=== PATIENT | female | born 1990 | race Caucasian/White ===

== ENCOUNTER 2016-10-16 06:00 | Inpatient (IN) | payer MEDICAID ==
[2016-10-16] MEDS ORDERED: CARBOPROST TROMETHAMINE 250 MCG/ML 1 ML AMP IM PRN (06:34)
[2016-10-16] MEDS ORDERED: TERBUTALINE 1 MG/ML VIAL SQ PRN (06:34)
[2016-10-16] MEDS ORDERED: METHYLERGONOVINE 0.2 MG/ML 1 ML AMP IM PRN (06:34)
[2016-10-16] MEDS ORDERED: LIDOCAINE 1% (PF) 10 MG/ML (30 ML SDV) SQ PRN (06:34)
[2016-10-16] MEDS ORDERED: OXYTOCIN 10 UNIT/ML 1 ML VIAL IM PRN (06:34)
[2016-10-16 06:43] LABS: Basophils % (A) 0 %; CH 30.2; CHCM 34.4; Eosinophils # (A) 0.1 k/uL (0-0.7); Eosinophils % (A) 1 %; HCT 34.2 % (34.0-46.0); HDW 2.64; HGB 11.8 gm/dL (11.4-16.0); Luc # (Auto) 0.23; Luc % (Auto) 2; Lymphocytes # (A) 1.6 k/uL (1.0-4.8); Lymphocytes % (A) 17 %; MCH 30.5 pg (25.0-35.0); MCHC 34.5 g/dL (31.0-37.0); MCV 88.3 fL (80.0-100.0); Mean Platelet Volume 8.3; Monocytes # (A) 0.8 k/uL (0-1.0); Monocytes % (A) 9 %; Neutrophils # (A) 6.8 k/uL (1.3-7.7); Neutrophils % (A) 70 %; RBC 3.88 m/uL (3.80-5.40); RDW 14.4 % (11.5-15.5); WBC 9.7 k/uL (3.8-10.6); WBC (Perox) 10.06
[2016-10-16] MEDS ORDERED: OXYTOCIN 30 UNITS/500 ML NS 30 UNIT in SALINE 1 500ML.BAG IV SCH ×2 (06:45→16:00)
[2016-10-16] MEDS: LACTATED RINGERS 1,000 ML IV SCH ×2 (07:03→09:00)
--- NOTE | 2016-10-16 07:08 | P.HPOB ---
History of Present Illness H&P Date: 10/16/16 Chief Complaint: Here for elective induction of labor, favorable cervix. This is a 25 rolled white female 1 para 0 EDC 10/16/2016 at 40 weeks gestation. Patient presents today for elective induction of labor with favorable cervix at term gestation. She is having irregular uterine contractions. She denies fluid leakage or vaginal bleeding. Fetus is been active throughout the . Past ocular history is unremarkable. Past surgical history is negative. Current medications vitamins daily. ALLERGIES none known. Family history significant for brain cancer, cystic fibrosis, heart disease and diabetes. Social history patient is single, father of the baby is involved, she works at [employer]. She denies alcohol tobacco or drug use. On exam this is a pleasant white female, 5 foot 3-1/2 inches tall, vital signs are stable and she is afebrile. Weight is approximately 160 pounds. The general physical exam is within normal limits. The chest is clear in all santiago. The extremities reveal no edema. The cervix is 3 cm dilated, 80% effaced, -2 station, vertex presentation, soft, anterior. Artificial amniorrhexis reveals clear fluid. heart rate is in the 140s with frequent accelerations consistent with reactive NST. Impression: 40 week intrauterine , favorable cervix, here for elective induction of labor. Plan: Close maternal and surveillance. Oxytocin per hospital protocol. Patient is aware of her options for analgesia. Anticipate normal spontaneous vaginal delivery. Review of Systems Negative except as in HPI Medications and Allergies Home Medications Medication Instructions Recorded Confirmed Type Ferrous Sulfate [Feosol] 325 mg PO DAILY 10/16/16 10/16/16 History Mv,Ca,Min/Folic Acid/Vit K1 1 each PO DAILY 10/16/16 10/16/16 History [One-A-Day Women's 50 Plus Tab] Allergies Allergy/AdvReac Type Severity Reaction Status Date / Time No Known Allergies Allergy Verified 10/16/16 06:32 Exam - Vital Signs Vital signs: Intake and Output 10/15/16 10/16/16 10/16/16 22:59 06:59 14:59 Other: Weight 73.936 kg See dictation, please Results Result Diagrams: 10/16/16 06:29 Assessment and Plan Plan: Close maternal and surveillance. Oxytocin per hospital protocol. Patient is aware of her options for analgesia when needed. Anticipate normal spontaneous vaginal delivery. Time with Patient: Less than 30
[2016-10-16 08:08] VITALS: BMI 28.8
[2016-10-16] MEDS ORDERED: BUPIVACAINE (PF) 0.25% 30 ML VIAL ONE (09:13)
[2016-10-16] MEDS ORDERED: fentaNYL (PF) 50 MCG/ML 5 ML AMP ONE (09:13)
[2016-10-16] MEDS ORDERED: SODIUM CHLORIDE 0.9% 100 ML BAG ONE (09:13)
[2016-10-16] MEDS ORDERED: ACETAMINOPHEN TAB 325 MG TAB PO PRN (15:48)
[2016-10-16] MEDS ORDERED: BENZOCAINE/MENTHOL SPRAY 1 GM/SPRAY AEROSOL TOPICAL PRN (15:48)
[2016-10-16] MEDS ORDERED: diphenhydrAMINE ELIXIR 25 MG/10 ML CUP PO PRN (15:48)
[2016-10-16] MEDS ORDERED: SIMETHICONE 80 MG CHEWABLE PO PRN (15:48)
[2016-10-16] MEDS ORDERED: HYDROCORTISONE 2.5% RECTAL CREAM 30 GM TUBE RECTAL PRN (15:48)
[2016-10-16] MEDS ORDERED: diphenhydrAMINE 50 MG/ML 1 ML VIAL IVP PRN ×2 (15:48)
[2016-10-16] MEDS ORDERED: diphenhydrAMINE 50 MG CAP PO PRN (15:48)
[2016-10-16] MEDS ORDERED: Acetaminophen-Codeine 300-30mg TAB PO PRN (15:48)
[2016-10-16] MEDS ORDERED: ZOLPIDEM 5 MG TAB PO PRN (15:48)
[2016-10-16] MEDS ORDERED: WITCH HAZEL 1 EACH MED..PAD TOPICAL PRN (15:48)
[2016-10-16] MEDS ORDERED: LANOLIN CREAM 5 GM TUBE TOPICAL PRN (15:48)
[2016-10-16] MEDS ORDERED: diphenhydrAMINE 25 MG CAP PO PRN (15:48)
--- NOTE | 2016-10-16 15:48 | P.PROBDLV ---
Vaginal Delivery Note - . Vaginal Delivery Note: This is a 25-year-old white female 1 para 0 EDC 10/16/2016 at 40 weeks gestation. Patient presented today for induction with favorable cervix. is unremarkable, group B strep cultures negative, blood type B-, rubella status immune. Please see my dictated history and physical for details. Patient was admitted, artificial amniorrhexis revealed clear fluid. Oxytocin was started and titrated per hospital protocol. Epidural was requested and placed. She progressed well through the first stage of labor, heart tones were reassuring throughout the first and second stages. Patient was judged to be completely dilated at 1411 hours and began the second stage of labor at that time. With excellent maternal expulsive efforts the 's head delivered occiput anterior. The perineal body had been prepped and draped in the usual sterile fashion. There was a nuchal cord 1 that was easily reduced on the perineal body. The left or anterior shoulder was then easily delivered. Patient was officially delivered of a liveborn male infant at 1500 hrs. Umbilical cord was doubly clamped and ligated, he was handed to waiting nurses for evaluation where scores of 9 and 9 at one and 5 minutes respectively were given. The placenta was delivered spontaneously, it was inspected and noted to be intact with trivascular cord at 1504 hrs. The uterus was then massaged. Inspection of the cervix, vagina, perineum, periurethral, and perirectal areas revealed a small first-degree perineal laceration. This was easily repaired with a single [id number]-[id number] suture of 3-0 Vicryl. Fundus is firm and in the midline, symmetric and 18 week size upon completion of delivery. All sponge needle and enhancement counts are correct at the end of the procedure. Patient and her significant other are requesting circumcision further son. Infant weighed 3455 g or 7 lbs. 10 oz.
[2016-10-16] MEDS: IBUPROFEN 600 MG TAB PO PRN (17:43)
[2016-10-16] MEDS: SENNOSIDES-DOCUSATE SODIUM 1 EACH TAB PO SCH (21:23)
[2016-10-17] MEDS: IBUPROFEN 600 MG TAB PO PRN (04:38)
--- NOTE | 2016-10-17 07:44 | P.DS ---
Providers Date of admission: 10/16/16 06:08 Expected date of discharge: 10/17/16 Attending physician: Amna Nair Primary care physician: Stated None Hospital Course: This is a 25-year-old white female 1 para 0 EDC 10/16/2016 at 40 weeks gestation. Patient presented for elective induction for favorable cervix at term. has been unremarkable, group B strep cultures negative, blood type B negative, please see my dictated history and physical for details. Patient progressed well through the first and second stages of labor and went on to swiftly deliver a liveborn male infant with scores of 9 and 9 at one and 5 minutes respectively. There was a nuchal cord easily reduced. There was a small first-degree perineal laceration repaired without issue. Estimated blood loss 300 mL's. weighed 7 lbs. 10 oz. or 3455 g. Please see my dictated delivery note for details. This morning the patient is doing well. She is voiding, and bleeding and passing flatus without difficulty. Vital signs are stable and she is afebrile. Infant is doing well, circumcision performed, he has been discharged by the manager auto. Patient is reminded no intercourse, tampons or douching. She will use [id number]-[id number] ibuprofen products, 200 mg pills, 3 every 6 hours as needed for pain. I've asked her to call me with any fevers shakes or chills , foul smelling or copious lochia, with the passage of large blood clots, with any pain not alleviated by [id number]-[id number]-[id number] products, or indeed with any concerns. We have briefly discussed methods of contraception and we will discuss this further in the office. Plan - Discharge Summary Discharge Medication List Ferrous Sulfate [Feosol] 325 mg PO DAILY 10/16/16 [History] Mv,Ca,Min/Folic Acid/Vit K1 [One-A-Day Women's 50 Plus Tab] 1 each PO DAILY 10/01 [History] Follow up Appointment(s)/Referral(s): Amna Nair MD [STAFF PHYSICIAN] - 6 Weeks Discharge Disposition: HOME SELF-CARE
[2016-10-17] MEDS: SENNOSIDES-DOCUSATE SODIUM 1 EACH TAB PO SCH (08:33)
[2016-10-17 10:29] VITALS: BP 122/71; PULSE 92; RESP 18; TEMP 97.4
== END 2016-10-17 15:30 | disposition home or self-care (01) | DRG 775 ==
LOC: 4FBP 06:08
PROVIDERS: ADMIT Obstetrics & Gynecology; ATTEND Obstetrics & Gynecology
PROC: 10E0XZZ Delivery of Products of Conception, External Approach (ICD-10-PCS; principal; 2016-10-16)
PROC: 0HQ9XZZ Repair Perineum Skin, External Approach (ICD-10-PCS; 2016-10-16)
PROC: 10907ZC Drainage of Amniotic Fluid, Therapeutic from Products of Conception, Via Natural or Artificial Opening (ICD-10-PCS; 2016-10-16)
PROC: 3E033VJ Introduction of Other Hormone into Peripheral Vein, Percutaneous Approach (ICD-10-PCS; 2016-10-16)
DX: O69.81X0 Labor and delivery complicated by cord around neck, without compression, not applicable or unspecified (principal); O70.0 First degree perineal laceration during delivery; Z37.0 Single live birth; Z3A.40 40 weeks gestation of pregnancy; Z79.899 Other long term (current) drug therapy
CPT/HCPCS: 85025; 88307

== ENCOUNTER 2018-11-13 10:48 | Outpatient (CLI) | payer MEDICAID ==
[2018-11-13] MEDS ORDERED: DEXTROSE 5%-LACTATED RINGERS 1,000 ML IV SCH (11:30)
[2018-11-13 11:49] LABS: Basophils % (A) 0 %; Eosinophils % (A) 0 %; HCT 34.7 % (34.0-46.0); HGB 11.6 gm/dL (11.4-16.0); Lymphocytes # (A) 0.6 k/uL (1.0-4.8); Lymphocytes % (A) 8 %; MCH 28.9 pg (25.0-35.0); MCHC 33.4 g/dL (31.0-37.0); MCV 86.4 fL (80.0-100.0); Mean Platelet Volume 7.7; Monocytes # (A) 0.6 k/uL (0-1.0); Monocytes % (A) 8 %; Neutrophils # (A) 6.3 k/uL (1.3-7.7); Neutrophils % (A) 82 %; Platelet Count 204 k/uL (150-450); RBC 4.01 m/uL (3.80-5.40); RDW 14.3 % (11.5-15.5); WBC 7.6 k/uL (3.8-10.6)
[2018-11-13 11:50] VITALS: BP 120/70; PULSE 120; RESP 14; TEMP 97.7
[2018-11-13 12:13] LABS: Amorphous Sediment,Urine Rare /hpf; Appearance,Urine Cloudy (Clear); Bacteria,Urine Few /hpf; Bilirubin,Urine Negative (Negative); Blood,Urine Small (Negative); Color,Urine Yellow; Glucose,Urine (UA) Trace (Negative); Ketones,Urine 4+ (Negative); Leukocyte Esterase,Urine Small (Negative); Mucus,Urine Rare /hpf; Nitrite,Urine Negative (Negative); PH, Urine 5.5 (5.0-8.0); Protein,Urine 1+ (Negative); RBC,Urine 7 /hpf (0-5); Specific Gravity,Urine 1.016 (1.001-1.035); Squamous Epithelial Cell,Urine 11 /hpf (0-4); WBC,Urine 4 /hpf (0-5)
--- NOTE | 2018-12-09 08:00 | P.MSEPDOC ---
Presenting Problems - Arrival Data Date of Arrival on Unit: 11/13/18 Time of Arrival on Unit: 10:48 Mode of Transport: Ambulatory - Complaint OB-Reason for Admission/Chief Complaint: Acute Nausea/Vomiting Medical History - Information : 2 Para: 1 Term: 1 : 0 Abortions: Spontaneous or Elective: 0 Number of Living Children: 1 - Gestational Age Gestational Age by FIDEL (wks/days): 34 Weeks and 4 Days Review of Systems - Review of Systems Constitutional: No problems Breast: No problems ENT: No problems Cardiovascular: No problems Respiratory: No problems Gastrointestinal: No problems Genitourinary: No problems Musculoskeletal: No problems Neurological: No problems Skin: No problems Vital Signs - Temperature Temperature: 97.7 F Temperature Source: Tympanic - Pulse Right Brachial Pulse Rate: 120 Pulse Assessment Method: Automatic Cuff - Respirations Respiratory Rate: 14 Oxygen Delivery Method: Room Air - Blood Pressure Right Arm Blood Pressure: 120/70 Blood Pressure Mean: 86 Blood Pressure Source: Automatic Cuff Medical Screen Scoring (Pre) - Cervical Exam Dilation: 0 cm = 0 Membranes: Intact - Uterine Contractions Frequency: N/A Duration: N/A Intensity: N/A - Maternal Vital Signs Maternal Temperature: N/A Maternal Blood Pressure: N/A Signs of Preeclampsia: N/A Maternal Respirations: N/A - Pain Assessment Pain Location and Character: Back Pain Scale Used: Numeric (1 - 10) Pain Intensity: 4 Pain Management Goal: 1 Pain Description: *Acute, Dull Pain Radiation Location: na Pain Frequency: Constant Pain Duration: 12 Pain Duration Units: Hours Pain Behavior: Vocalization Pain Aggravating Factors: None Non-Pharmacological Interventions: Position/Reposition - Maternal Trauma Maternal Trauma: N/A - Assessment Baseline FHR: 135 Heart Rate - NICHD Category: Category I (Normal) = 0 NST: Reactive Position: N/A Station: N/A - Total Score Total Score (Pre): 0 - Level of Risk Level of Risk: N/A Physician Notification (Pre) - Physician Notified Physician Notified Date: 11/13/18 Physician Notified Time: 11:00 Physician/Practitioner Notifed:: Dr. Nair Spoke With: Dr. Nair New Order Received: Yes - Notification Comment Comment: start IV, check cervix, and send UA and CBC Medical Screen Scoring (Post) - Uterine Contractions Frequency: N/A Duration: N/A Intensity: N/A - Maternal Vital Signs Maternal Temperature: N/A Maternal Blood Pressure: N/A Maternal Respirations: N/A - Pain Assessment Pain Scale Used: Numeric (1 - 10) Pain Intensity: 0 Pain Management Goal: 0 - Maternal Trauma Maternal Trauma: N/A - Assessment Heart Rate: 145 Heart Rate - NICHD Category: Category I (Normal) = 0 NST: Reactive Position: N/A Station: N/A - Total Score Total Score (Post): 0 - Post Treatment Level of Risk Post Treatment Level of Risk: Low (0-5) Physician Notification (Post) - Physician Notified Physician Notified Date: 11/13/18 Physician Notified Time: 12:30 Physician/Practitioner Notified:: Dr. Nair Spoke With: Dr. Nair New Order Received: Yes - Notification Comment Comment: d/c home Disposition - Disposition OB Disposition: Physician follow up in office Discharge Date: 11/13/18 Discharge Time: 13:00 I agree with the RN Medical Screening Exam: Yes Risk & Benefit of care provided described in d/c instruction: Yes Diagnosis: LATE VOMITING OF
== END 2018-11-13 13:00 | disposition home or self-care (01) ==
LOC: FBPOP 10:48
PROVIDERS: ATTEND Obstetrics & Gynecology
DX: O21.2 Late vomiting of pregnancy (principal); Z3A.34 34 weeks gestation of pregnancy
CPT/HCPCS: 59025; 81001; 85025; 87086; 96360; 99214

== ENCOUNTER 2018-12-25 21:00 | Inpatient (IN) | payer MEDICAID ==
[2018-12-25] MEDS ORDERED: TERBUTALINE 1 MG/ML VIAL SQ PRN (21:30)
[2018-12-25] MEDS ORDERED: CARBOPROST TROMETHAMINE 250 MCG/ML 1 ML AMP IM PRN (21:30)
[2018-12-25] MEDS ORDERED: OXYTOCIN 30 UNITS/500 ML NS 30 UNIT in SALINE 1 500ML.BAG IV SCH (21:30)
[2018-12-25] MEDS ORDERED: METHYLERGONOVINE 0.2 MG/ML 1 ML AMP IM PRN (21:30)
[2018-12-25] MEDS ORDERED: LIDOCAINE 0.5% (PF) 5 MG/ML (50 ML SDV) SQ PRN (21:30)
[2018-12-25] MEDS ORDERED: OXYTOCIN 10 UNIT/ML 1 ML VIAL IM PRN (21:30)
[2018-12-25 21:50] VITALS: BMI 29.9
[2018-12-25] MEDS: LACTATED RINGERS 1,000 ML IV SCH (21:58)
[2018-12-25 22:15] LABS: Basophils % (A) 0 %; Eosinophils # (A) 0.1 k/uL (0-0.7); Eosinophils % (A) 1 %; HCT 35.7 % (34.0-46.0); HGB 11.4 gm/dL (11.4-16.0); Lymphocytes # (A) 2.1 k/uL (1.0-4.8); Lymphocytes % (A) 17 %; MCH 28.1 pg (25.0-35.0); MCHC 31.9 g/dL (31.0-37.0); MCV 88.1 fL (80.0-100.0); Mean Platelet Volume 7.1; Monocytes # (A) 0.8 k/uL (0-1.0); Monocytes % (A) 7 %; Neutrophils # (A) 8.9 k/uL (1.3-7.7); Neutrophils % (A) 73 %; Platelet Count 195 k/uL (150-450); RBC 4.05 m/uL (3.80-5.40); RDW 14.3 % (11.5-15.5); WBC 12.1 k/uL (3.8-10.6)
--- NOTE | 2018-12-25 22:39 | P.HPOB ---
History of Present Illness H&P Date: 12/25/18 Chief Complaint: Strong regular uterine contractions This is a 28-year-old white female 2 para 1001 EDC 12/22/2018 at 40-3/7 weeks' gestation. Patient presents tonight with strong regular uterine contractions. She denies fluid leakage or vaginal bleeding. Fetus is been active throughout the . Past medical history is unremarkable. Past surgical history is negative. Current medications vitamins daily. ALLERGIES none known. Social history patient is single, boyfriend is present and involved, she has never been a smoker and denies alcohol or drug use. Family history significant for brain cancer, cystic fibrosis, diabetes and heart disease, hypercholesterol and hypertension. Obstetric history blood type is B-, rubella status immune. VDRL testing, hepatitis B surface antigen, gonorrhea and chlamydia cultures, group B strep culture, urine culture all negative. One-hour Glucola 139. On exam she is 5 foot 3 inches, 168 pounds, blood pressure 125/72. Vital signs are otherwise stable and she is afebrile. The general physical exam is within normal limits. Cervix is completely dilated, 90% effaced, -2 station. Contractions occurring every 5 minutes apart of moderate intensity. Artificial amniorrhexis reveals clear fluid. heart rate at this time is consistent with reactive NST, frequent accelerations, type I decelerations with uterine contractions. Plan: 40 weeks intrauterine , active spontaneous labor. All signs currently reassuring. Plan: Close maternal and surveillance. Anticipate normal spontaneous vaginal delivery. Review of Systems Constitutional: Reports as per HPI Past Medical History Past Medical History: No Reported History History of Any Multi-Drug Resistant Organisms: None Reported Past Surgical History: No Surgical Hx Reported Past Anesthesia/Blood Transfusion Reactions: No Reported Reaction Past Psychological History: No Psychological Hx Reported Smoking Status: Never smoker Past Alcohol Use History: None Reported Past Drug Use History: None Reported - Past Family History Father Family Medical History: No Reported History Medications and Allergies Home Medications Medication Instructions Recorded Confirmed Type Ferrous Sulfate [Feosol] 325 mg PO DAILY 10/16/16 12/25/18 History Multivit/Folic Acid/Vit K1 1 each PO DAILY 10/16/16 12/25/18 History [One-A-Day Women's 50 Plus Tab] Allergies Allergy/AdvReac Type Severity Reaction Status Date / Time No Known Allergies Allergy Verified 12/25/18 21:17 Exam Vital Signs Temp Pulse Resp BP Pulse Ox 12/25/18 21:37 96.6 F L 85 16 125/72 99 12/25/18 21:18 96.6 F L 85 16 125/72 99 Intake and Output 12/25/18 12/25/18 12/25/18 06:59 14:59 22:59 Other: # Voids 1 Weight 76.612 kg See dictation under HPI please Results Result Diagrams: 12/25/18 21:50 Abnormal Lab Results - Last 24 Hours (Table) 12/25/18 Range/Units 21:50 WBC 12.1 H (3.8-10.6) k/uL Neutrophils # 8.9 H (1.3-7.7) k/uL Assessment and Plan Assessment: 40-3/7 weeks intrauterine , active spontaneous labor. Plan: Continue close maternal and surveillance. Anticipate normal spontaneous vaginal delivery. Time with Patient: Less than 30
--- NOTE | 2018-12-25 23:26 | P.PROBDLV ---
Vaginal Delivery Note - . Vaginal Delivery Note: This is a 28-year-old white female 2 para 1001 EDC 01/01/2018 at 40-3/7 weeks' gestation. Patient presented tonight with strong regular uterine contractions, in spontaneous labor. was essentially unremarkable, group B strep cultures negative, blood type B-, rubella status immune. Please see my dictated history and physical for details. Artificial amniorrhexis revealed clear fluid. heart rate overall was reassuring with frequent accelerations, she did have 2 spontaneous decelerations that were treated with position change and oxygen administration. She became completely dilated at 2025 hours. The perineal body was prepped and draped in the usual sterile fashion. Patient was allowed to labor until an urge to push was noted. At that time she was placed in the dorsal lithotomy position. With excellent maternal expulsive efforts the head quickly crowned and restituted accordingly. There was no nuchal cord noted. The right or anterior shoulder was gently delivered from underneath the pubic symphysis at which time the oropharynx, nasopharynx, and external nares were bulb suctioned on the perineum. Patient was officially delivered of a liveborn male infant at 2257 hours. Umbilical cord was doubly clamped and ligated, he was handed to waiting nurses for evaluation where scores of 9 and 9 at one and 5 minutes respectively were given. Placenta was delivered spontaneously, it was inspected and noted to be intact w ith trivascular cord. Inspection of the cervix, vagina, perineum, periurethral, and perirectal areas revealed a small amount of membranes in the vaginal vault that were gently teased out with a ring forcep. The perineal body was noted to have a small second-degree midline laceration that was injected with lidocaine, and repaired in the usual fashion using 3-0 undyed Vicryl. Infant weighs 8 lbs. 7 oz. or 3835 g. All sponge needle and enhancement counts are correct at the end of the procedure. Patient and her are requesting circumcision for their son.
[2018-12-25] MEDS ORDERED: diphenhydrAMINE 50 MG/ML 1 ML VIAL IVP PRN ×2 (23:28)
[2018-12-25] MEDS ORDERED: diphenhydrAMINE ELIXIR 25 MG/10 ML CUP PO PRN (23:28)
[2018-12-25] MEDS ORDERED: LANOLIN CREAM 5 GM TUBE TOPICAL PRN (23:28)
[2018-12-25] MEDS ORDERED: WITCH HAZEL 1 EACH MED..PAD TOPICAL PRN (23:28)
[2018-12-25] MEDS ORDERED: IBUPROFEN 600 MG TAB PO PRN (23:28)
[2018-12-25] MEDS ORDERED: ZOLPIDEM 5 MG TAB PO PRN (23:28)
[2018-12-25] MEDS ORDERED: diphenhydrAMINE 50 MG CAP PO PRN (23:28)
[2018-12-25] MEDS ORDERED: diphenhydrAMINE 25 MG CAP PO PRN (23:28)
[2018-12-25] MEDS ORDERED: HYDROcodone/APAP 5-325MG 1 EACH TAB PO PRN (23:28)
[2018-12-25] MEDS ORDERED: SIMETHICONE 80 MG CHEWABLE PO PRN (23:28)
[2018-12-25] MEDS ORDERED: IBUPROFEN ORAL SUSP 100 MG/5 ML CUP PO PRN (23:28)
[2018-12-25] MEDS ORDERED: BENZOCAINE/MENTHOL SPRAY 1 GM/SPRAY AEROSOL TOPICAL PRN (23:28)
[2018-12-25] MEDS ORDERED: HYDROCORTISONE 2.5% RECTAL CREAM 30 GM TUBE RECTAL PRN (23:28)
[2018-12-25] MEDS ORDERED: ACETAMINOPHEN TAB 325 MG TAB PO PRN (23:28)
[2018-12-25] MEDS ORDERED: OXYTOCIN 20 UNITS/1000 ML NS 1,000 ML IV SCH (23:30)
[2018-12-26] MEDS: SENNOSIDES-DOCUSATE SODIUM 1 EACH TAB PO SCH ×2 (08:05→20:44)
--- NOTE | 2018-12-26 09:40 | P.DS ---
Providers Date of admission: 12/25/18 21:27 Expected date of discharge: 12/26/18 Attending physician: Amna Nair [facility] Course: This is a 28-year-old white female 2 para 1001 EDC 12/22/2018 at 40-3/7 weeks' gestation. Patient presented last night in spontaneous active labor. is unremarkable, rubella status immune, group B strep cultures negative, blood type B negative. Please see my dictated history and physical for details. Artificial amniorrhexis revealed clear fluid. Patient went on to swiftly deliver a liveborn male infant with scores of 9 and 9 at one and 5 minutes respectively. He weighed 8 lbs. 7 oz. or 3835 g. The was a small second-degree perineal laceration easily repaired, and an estimated blood loss of 250 mL's. Please see my dictated delivery note for details. This morning the patient is doing well. She is voiding, ambulating and passing flatus without difficulty. Vital signs are stable and she is afebrile. Fundus is firm and in the midline, symmetric and 18 week size. Extremities are negative for edema. Breasts are not engorged. Breast-feeding is going well. infant has been circumcised and is doing well. Patient is judged to be in very good condition for discharge home. She will follow-up in the office with me in 6 weeks. I have reminded her no intercourse, tampons or douching. She will use [id number] Advil or Aleve, or Motrin 200 mg pills, 3 every 6 hours as needed. She will call with any fevers shakes or chills, foul smelling or copious lochia, with the passage of large blood clots, with any pain not alleviated by [id number]-[id number] products, or indeed with any concerns. We have briefly contemplated options for contraception and we will discuss this further in the office. Patient Condition at Discharge: Good Plan - Discharge Summary Discharge Rx Participant: No New Discharge Prescriptions: No Action Multivit/Folic Acid/Vit K1 [One-A-Day Women's 50 Plus Tab] 1 each PO DAILY Ferrous Sulfate [Feosol] 325 mg PO DAILY Discharge Medication List Ferrous Sulfate [Feosol] 325 mg PO DAILY 10/16/16 [History] Multivit/Folic Acid/Vit K1 [One-A-Day Women's 50 Plus Tab] 1 each PO DAILY 10/16/16 [History] Follow up Appointment(s)/Referral(s): Amna Nair MD [Primary Care Provider] - 6 Weeks
[2018-12-26 16:19] VITALS: BP 107/62; PULSE 67; RESP 16; TEMP 98.2
[2018-12-26] MEDS: LACTATED RINGERS 1,000 ML IV SCH (20:43)
== END 2018-12-26 23:00 | disposition home or self-care (01) | DRG 807 ==
LOC: FBPOP 21:00 → 4FBP 21:27
PROVIDERS: ADMIT Obstetrics & Gynecology; ATTEND Obstetrics & Gynecology
PROC: 0KQM0ZZ Repair Perineum Muscle, Open Approach (ICD-10-PCS; principal; 2018-12-25)
PROC: 10907ZC Drainage of Amniotic Fluid, Therapeutic from Products of Conception, Via Natural or Artificial Opening (ICD-10-PCS; principal; 2018-12-25)
PROC: 10E0XZZ Delivery of Products of Conception, External Approach (ICD-10-PCS; principal; 2018-12-25)
DX: O70.1 Second degree perineal laceration during delivery (principal); Z37.0 Single live birth; Z3A.40 40 weeks gestation of pregnancy; O76 Abnormality in fetal heart rate and rhythm complicating labor and delivery; Z80.8 Family history of malignant neoplasm of other organs or systems; Z82.49 Family history of ischemic heart disease and other diseases of the circulatory system; Z83.3 Family history of diabetes mellitus
CPT/HCPCS: 59025; 85025; 86850; 86870; 86880; 86900; 86901; 99213

== ENCOUNTER 2023-12-02 06:02 | Inpatient (IN) | payer BC ==
[2023-12-02] MEDS ORDERED: miSOPROStoL 200 MCG TAB PO PRN (06:24)
[2023-12-02] MEDS ORDERED: TERBUTALINE 1 MG/ML VIAL SQ PRN (06:24)
[2023-12-02] MEDS ORDERED: OXYTOCIN 10 UNIT/ML 1 ML VIAL IM PRN (06:24)
[2023-12-02] MEDS ORDERED: CARBOPROST TROMETHAMINE 250 MCG/ML 1 ML AMP IM PRN (06:24)
[2023-12-02] MEDS ORDERED: METHYLERGONOVINE 0.2 MG/ML 1 ML AMP IM PRN (06:24)
[2023-12-02] MEDS ORDERED: TRANEXAMIC 1,000 MG/100ML-NACL 1,000 MG in EMPTY BAG 1 BAG IV PRN (06:24)
[2023-12-02] MEDS: LACTATED RINGERS 1,000 ML IV SCH (06:40)
[2023-12-02] MEDS: OXYTOCIN 30 UNITS/500 ML NS 30 UNIT in SALINE 1 500ML.BAG IV SCH (06:41)
[2023-12-02 06:46] LABS: Basophils % (A) 0 %; Eosinophils # (A) 0.1 k/uL (0-0.7); Eosinophils % (A) 1 %; HCT 32.6 % (34.0-46.0); HGB 10.8 gm/dL (11.4-16.0); Lymphocytes # (A) 1.8 k/uL (1.0-4.8); Lymphocytes % (A) 22 %; MCH 27.8 pg (25.0-35.0); MCHC 33.1 g/dL (31.0-37.0); MCV 83.9 fL (80.0-100.0); Mean Platelet Volume 8.6; Monocytes # (A) 0.7 k/uL (0-1.0); Monocytes % (A) 9 %; Neutrophils # (A) 5.2 k/uL (1.3-7.7); Neutrophils % (A) 65 %; Platelet Count 180 k/uL (150-450); RBC 3.89 m/uL (3.80-5.40); RDW 15.9 % (11.5-15.5)
[2023-12-02 07:01] LABS: Glucose,Whole Blood 93 mg/dL (70-110)
[2023-12-02] MEDS: NALBUPHINE 10 MG/ML (10 ML MDV) IV PRN (12:54)
[2023-12-02] MEDS ORDERED: SODIUM CHLORIDE 0.9% 250 ML BAG ONE (17:10)
[2023-12-02] MEDS ORDERED: ROPIVACAINE 5 MG/ML 30 ML VIAL ONE (17:10)
[2023-12-02] MEDS ORDERED: fentaNYL (PF) 50 MCG/ML 5 ML AMP ONE (17:10)
[2023-12-02] MEDS: LIDOCAINE 0.5% (PF) 5 MG/ML (50 ML SDV) SQ PRN (19:30)
[2023-12-02] MEDS: BENZOCAINE/MENTHOL SPRAY 1 GM/SPRAY AEROSOL TOPICAL PRN (19:40)
[2023-12-02] MEDS ORDERED: ZOLPIDEM 5 MG TAB PO PRN (19:41)
[2023-12-02] MEDS ORDERED: diphenhydrAMINE 50 MG CAP PO PRN (19:41)
[2023-12-02] MEDS ORDERED: LANOLIN CREAM 1 GM TUBE TOPICAL PRN (19:41)
[2023-12-02] MEDS ORDERED: HYDROCORTISONE 2.5% RECTAL CREAM 30 GM TUBE RECTAL PRN (19:41)
[2023-12-02] MEDS ORDERED: diphenhydrAMINE 25 MG CAP PO PRN (19:41)
[2023-12-02] MEDS ORDERED: SIMETHICONE 80 MG CHEWABLE PO PRN (19:41)
[2023-12-02] MEDS ORDERED: diphenhydrAMINE 50 MG/ML 1 ML VIAL IVP PRN ×2 (19:41)
--- NOTE | 2023-12-02 19:45 | P.PROBDLV ---
Vaginal Delivery Note - . Vaginal Delivery Note: 32-year-old at 39-1/7 weeks that presented to labor and delivery this morning for scheduled induction of labor secondary to gestational diabetes, A1. Patient was admitted and Pitocin induction of labor was begun. Patient underwent amniotomy and clear fluid was obtained. Patient progressed through most the day comfortable, patient did receive Nubain x 2. Patient did become uncomfortable and had an epidural placed by the anesthesia department. Patient quickly progressed to complete began pushing and had a normal spontaneous vaginal delivery of a viable female at 1926, weight of 6 pounds 12 ounces, Apgars of 9 and 9 at 1 and 5 minutes respectively. After 2-minute delay the umbilical heart was doubly clamped and cut. Cord blood was then taken. This placenta was delivered spontaneously intact with a three-vessel cord being noted. Inspection the patient's vaginal vault second-degree midline laceration was appreciated. This was repaired in usual fashion with 3-0 Rapide. Patient had a dense epidural therefore lidocaine instillation was not required. Uterus was noted to be firm and below the umbilicus. Bladder was drained prior to the onset of pushing for 200 cc. All counts were to be correct x 2 at the end of the delivery. Patient and tolerated delivery well and are resting comfortably.
[2023-12-02] MEDS: IBUPROFEN 600 MG TAB PO SCH (20:45)
[2023-12-02] MEDS: SENNOSIDES-DOCUSATE SODIUM 1 EACH TAB PO SCH (22:35)
[2023-12-02] MEDS: ACETAMINOPHEN TAB 325 MG TAB PO PRN (23:23)
[2023-12-02] MEDS: Rhogam IMMUNE GLOBULIN 1,500 UNIT/1 ML IM ONE (23:30)
--- NOTE | 2023-12-03 08:06 | P.HPOB ---
History of Present Illness H&P Date: 12/02/23 Chief Complaint: IUP at 39 weeks, gestational diabetes, A1 This is a 32-year-old 3 para 2-0-0-2 at 39 weeks of gestation that presents for induction of labor secondary to gestational diabetes, A1. Patient has been receiving routine care complicated by diagnosis of gestational diabetes. Blood sugars have been good throughout the . Patient has un dergone testing which has been normal throughout the third trimester. Patient notes good movement denies contractions vaginal bleeding or loss of fluid. On blood work this patient is a blood type of B-, rubella status nonimmune, hepatitis B surface engine negative, HIV negative, RPR is nonreactive, grew beta strep culture was negative. Review of Systems Constitutional: Denies chills, Denies fatigue, Denies fever Ears, nose, mouth and throat: Denies headache Cardiovascular: Denies leg edema Respiratory: Denies dyspnea Gastrointestinal: Denies nausea, Denies vomiting Genitourinary: Reports Past Medical History Past Medical History: No Reported History History of Any Multi-Drug Resistant Organisms: None Reported Past Surgical History: No Surgical Hx Reported Past Anesthesia/Blood Transfusion Reactions: No Reported Reaction Past Psychological History: No Psychological Hx Reported Smoking Status: Never smoker Past Alcohol Use History: None Reported Past Drug Use History: None Reported - Past Family History Father Family Medical History: No Reported History Medications and Allergies Home Medications Medication Instructions Recorded Confirmed Type Multivit/Folic Acid/Vit K1 1 each PO DAILY 10/16/16 12/02/23 History [One-A-Day Women's 50 Plus Tab] Allergies Allergy/AdvReac Type Severity Reaction Status Date / Time No Known Allergies Allergy Verified 11/20/23 10:32 Exam Osteopathic Statement: *. No significant issues noted on an osteopathic structural exam other than those noted in the History and Physical/Consult. Vital Signs Pulse Resp BP 12/02/23 07:21 84 16 119/72 Intake and Output 12/01/23 12/02/23 12/02/23 22:59 06:59 14:59 Other: Weight 78.018 kg 78.018 kg Targeted physical exam is performed this date General is well-nourished well- developed female in no acute distress, breathing is noted nonlabored, heart has a regular rate rhythm, abdomen is gravid and appropriate for gestational age, on cervical exam she is 1/70/-2 station amniotomy is performed and clear fluid was obtained. heart tones are noted to be category 1 and she is valente irregularly. Results Result Diagrams: 12/02/23 06:29 Abnormal Lab Results - Last 24 Hours (Table) 12/02/23 Range/Units 06:29 Hgb 10.8 L (11.4-16.0) gm/dL Hct 32.6 L (34.0-46.0) % RDW 15.9 H (11.5-15.5) % Assessment and Plan (1) Term Current Visit: Yes Status: Acute Code(s): Z34.90 - ENCNTR FOR SUPRVSN OF NORMAL , UNSP, UNSP TRIMESTER SNOMED Code(s): 06850892 (2) GDM (gestational diabetes mellitus), class A1 Current Visit: Yes Status: Acute Code(s): O24.410 - GESTATIONAL DIABETES MELLITUS IN , DIET CONTROLLED SNOMED Code(s): 90632181 Plan: 32-year-old at 39 weeks of presents for induction of labor secondary to gestational diabetes, A1. Patient is admitted and Pitocin induction of labor has begun. Options for analgesia are discussed including Nubain, nitrous, epidural. Patient will consider. Anticipate spontaneous vaginal delivery later this afternoon.
--- NOTE | 2023-12-03 08:09 | P.DS ---
Providers Date of admission: 12/02/23 06:02 Expected date of discharge: 12/03/23 Attending physician: Ananya Coto Primary care physician: Stated None - Discharge Diagnosis(es) (1) Term Current Visit: Yes Status: Acute (2) GDM (gestational diabetes mellitus), class A1 Current Visit: Yes Status: Acute (3) Status post vaginal delivery Current Visit: Yes Status: Acute (4) Obstetric vaginal laceration with second degree perineal laceration Current Visit: Yes Status: Acute Hospital Course: This is a 32-year-old -0-0-2 at 39-1/7 weeks that presents to labor and delivery for scheduled induction of labor secondary to gestational diabetes, A1. Patient had been receiving routine and care. Patient is admitted to labor and delivery and Pitocin induction of labor has begun per hospital protocol. Patient underwent amniotomy and clear fluid was obtained. Patient made minimal change throughout the day. Patient did become uncomfortable and received Nubain x 2. Patient was noted to be 2 cm around 1700 and epidural was requested. Anesthesia presented and epidural was placed without difficulty. Patient was then noted to be 6 to 7 cm and quickly progressed to complete. Patient began pushing and had a normal spontaneous vaginal delivery of a viable female infant at 1926, weight of 6 pounds 12 ounces. Apgars of 9 and 9 at 1 and 5 minutes respectively were appreciated. Patient has done well . In this day #1 she is ambulating and voiding without difficulty. She is tolerating a regular diet without nausea or vomiting. She states her pain is well-controlled. She denies concerns and would like discharge home at 24 hours if possible. Patient Condition at Discharge: Good Plan - Discharge Summary New Discharge Prescriptions: No Action Multivit/Folic Acid/Vit K1 [One-A-Day Women's 50 Plus Tab] 1 each PO DAILY Discharge Medication List Multivit/Folic Acid/Vit K1 [One-A-Day Women's 50 Plus Tab] 1 each PO DAILY 10/16/16 [History] Follow up Appointment(s)/Referral(s): Ananya Coto DO [Doctor of Osteopathic Medicine] - 6 Weeks Patient Instructions/Handouts: Vaginal Delivery (DC), Vaginal Delivery (GEN) Activity/Diet/Wound Care/Special Instructions: No intercourse, tampons or douching. No heavy lifting greater than a gallon of milk. No driving for two weeks. Call with any fever, shakes or chills, with any pain not alleviated by over the counter meds, or with any quesions or concerns. Discharge Disposition: HOME SELF-CARE
[2023-12-03 09:00] VITALS: RESP 16
[2023-12-03] MEDS: PRENATAL VIT-IRON-FOLIC ACID 1 EACH TABLET PO SCH (10:32)
[2023-12-03 15:46] VITALS: BP 112/71; PULSE 83; TEMP 97.5
== END 2023-12-03 20:26 | disposition home or self-care (01) | DRG 807 ==
LOC: 4FBP 06:02 → MERGE 09:17
PROVIDERS: ADMIT Obstetrics & Gynecology Obstetrics; ATTEND Obstetrics & Gynecology Obstetrics
PROC: 3E033VJ Introduction of Other Hormone into Peripheral Vein, Percutaneous Approach (ICD-10-PCS; principal; 2023-12-02)
PROC: 10907ZC Drainage of Amniotic Fluid, Therapeutic from Products of Conception, Via Natural or Artificial Opening (ICD-10-PCS; principal; 2023-12-02)
PROC: 10E0XZZ Delivery of Products of Conception, External Approach (ICD-10-PCS; principal; 2023-12-02)
PROC: 0KQM0ZZ Repair Perineum Muscle, Open Approach (ICD-10-PCS; principal; 2023-12-02)
PROC: 3E0234Z Introduction of Serum, Toxoid and Vaccine into Muscle, Percutaneous Approach (ICD-10-PCS; principal; 2023-12-02)
DX: O24.420 Gestational diabetes mellitus in childbirth, diet controlled (principal); O26.893 Other specified pregnancy related conditions, third trimester; Z67.21 Type B blood, Rh negative; O70.1 Second degree perineal laceration during delivery; Z3A.39 39 weeks gestation of pregnancy; Z37.0 Single live birth
CPT/HCPCS: 85025; 85461; 86850; 86900; 86901